=== PATIENT | male | born 1990 | race Asian ===

== ENCOUNTER 2017-01-31 15:47 | Emergency (ER) | payer OTHER ==
[~2017-01-31] VITALS: Ht 165.1 cm; Wt 77.1 kg
[2017-01-31 15:59] VITALS: BP 140/73
--- NOTE | 2017-01-31 16:05 | NUR ---
PT TO OVERFLOW.
--- NOTE | 2017-01-31 16:07 | NUR ---
PATIENT PRESENTS TO ED FOR EVALUATION OF NEEDLE STICK INJURY TO LEFT MIDDLE FINGER WHILE AT WORK . DENIES N/V/D; NEEDLE STICK NOTED TO LEFT MIDDLE FINGER, SKIN IS OTHERWISE PINK/WARM/DRY; AAOX4 WITH EVEN AND STEADY GAIT; LUNGS CLEAR BL; HR EVEN AND REGULAR; PT DENIES ANY FEVER, CP, SOB, OR COUGH AT THIS TIME; PATIENT STATES PAIN OF 0/10 AT THIS TIME; VSS; PATIENT POSITIONED FOR COMFORT; ER MD MADE AWARE OF PT STATUS.
--- NOTE | 2017-01-31 16:09 | NUR ---
Nisreen EVALUATING PT IN OVERFLOW.
--- NOTE | 2017-01-31 16:45 | NUR ---
Patient discharged with v/s stable. Written and verbal after care instructions given and explained. Patient verbalized understanding. Ambulatory with steady gait. All questions addressed prior to discharge. Advised to follow up with PMD.
[2017-01-31 17:00] LABS: HIV RAPID SCREEN NON-REACTIVE (NON REACTIV)
[2017-01-31 17:57] VITALS: BP 140/73
[2017-02-01 09:25] LABS: HIV 1/0/2 ABS, QUAL Non Reactive (Non Reactive)
[2017-02-01 12:10] LABS: HEPATITIS B SURFACE ANTIGEN Negative (Negative); HEPATITIS C VIRUS ANTIBODY <0.1 s/co ratio (0.0-0.9)
[2017-02-01 13:19] LABS: RAPID PLASMA REAGIN NON-REACTIVE (Non Reactiv)
== END 2017-01-31 16:45 | disposition home or self-care (01) ==
LOC: MED 15:47
DX: S61.233A Puncture wound without foreign body of left middle finger without damage to nail, initial encounter (principal); W27.3XXA Contact with needle (sewing), initial encounter; Y93.89 Activity, other specified; Y92.89 Other specified places as the place of occurrence of the external cause; Y99.8 Other external cause status
CPT/HCPCS: 36415; 86592; 86702; 86803; 87340; 99284

== ENCOUNTER 2017-09-05 12:18 | Emergency (ER) | payer OTHER ==
[~2017-09-05] VITALS: Ht 165.1 cm; Wt 63.5 kg
[2017-09-05 12:26] VITALS: BP 128/63
--- NOTE | 2017-09-05 12:33 | NUR ---
PT TO CHAIR ATessie OLIVARES SPEAKING WITH PT.
[2017-09-05 15:07] VITALS: BP 128/63
[2017-09-06 06:26] LABS: HEPATITIS B SURFACE ANTIGEN Negative (Negative)
== END 2017-09-05 15:07 | disposition home or self-care (01) ==
LOC: MED 12:18
DX: Z77.21 Contact with and (suspected) exposure to potentially hazardous body fluids (principal)
CPT/HCPCS: 36415; 86592; 86702; 86803; 87340; 99284